=== PATIENT | male | born 1955 | race African-American/Black ===

== ENCOUNTER → 2023-05-18 | Outpatient (CLI) | payer OTHER ==
[2023-05-18 11:01] LABS: COVID19 (SARS ANTIGEN RAPID) PRESUMPTIVE NEGATIVE (NEGATIVE); INFLUENZA TYPE A Negative For Type A (NEGATIVE); INFLUENZA TYPE B Negative For Type B (NEGATIVE)
== END | disposition home or self-care (01) ==
LOC: LAB 09:24
PROVIDERS: ATTEND Hospitalist
DX: U07.1 COVID-19 (principal)
CPT/HCPCS: 87426; 87804

== ENCOUNTER → 2024-08-22 | Outpatient (CLI) | payer OTHER ==
[2024-08-22 14:50] LABS: APPEARANCE,URINE CLEAR (CLEAR); BILIRUBIN,URINE NEGATIVE (NEGATIVE); COLOR,URINE YELLOW (YELLOW); GLUCOSE, URINE (UA) NEGATIVE (NEGATIVE); KETONES,URINE NEGATIVE (NEGATIVE); LEUKOCYTE ESTERASE ,URINE NEGATIVE Leu/uL (NEGATIVE); NITRATE,URINE NEGATIVE (NEGATIVE); OCCULT BLOOD,URINE NEGATIVE (NEGATIVE); PH,URINE 5.5 (5.0-8.0); PROTEIN,URINE 10 mg/dL (NEGATIVE); UROBILINOGEN,URINE 0.2 mg/dL (0.2-1.0)
[2024-08-22 14:51] LABS: ADD UA MICROSCOPIC YES
[2024-08-22 15:00] LABS: BASOPHILS # (AUTO) 0.07 K/uL (0.00-0.20); BASOPHILS % (AUTO) 1.2 % (0.0-5.0); EOSINOPHILS # (AUTO) 0.36 K/uL (0.00-0.70); EOSINOPHILS % (AUTO) 5.9 % (0.0-8.0); IMMATURE GRANULOCYTE ABSOLUTE 0.03 K/uL (0-1); LYMPHOCYTES # (AUTO) 2.1 K/uL (1.0-4.8); MEAN CORPUSCULAR HGB CONC 32.9 g/dL (32.0-36.0); MEAN CORPUSCULAR VOLUME 88.1 fL (79-99); MONOCYTES # (AUTO) 0.6 K/uL (0.1-1.0); MONOCYTES % (AUTO) 9.9 % (3.0-13.0); NEUTROPHILS % (AUTO) 48.5 % (40.0-77.0); PLATELET COUNT (AUTO) 191 K/uL (130-400); RED BLOOD CELL COUNT(AUTO) 5.11 MIL/uL (4.50-6.20); RED CELL DISTRIBUTION WIDTH 13.4 % (11.0-15.5); WHITE BLOOD COUNT (AUTO) 6.1 K/uL (4.8-10.8)
[2024-08-22 15:46] LABS: ALBUMIN 3.8 g/dL (3.5-5.0); BILIRUBIN,TOTAL 0.4 mg/dL (0.2-1.0); CREATININE 1.2 mg/dL (0.5-1.3); POTASSIUM 4.5 mmol/L (3.5-5.1); THYROID STIMULATING HORMONE 1.16 uIU/mL (0.36-3.74); TOTAL PROTEIN, SERUM 7.3 g/dL (6.0-8.3)
[2024-08-22 16:07] LABS: MUCUS,URINE RARE LPF (None Seen); RBC,URINE 0-1 /HPF (0-1); WBC,URINE 0-1 /HPF (0-1)
[2024-08-24 11:12] LABS: PSA ULTRASENSITIVE 0.89 ng/mL (0.000-4.000)
[2024-08-26 23:09] LABS: CORONAVIRUS 229E Not Detected (Not Detected); HUMAN RHINOVIRUS/ENTEROVIRUS Not Detected (Not Detected)
== END | disposition home or self-care (01) ==
LOC: LAB 14:01
PROVIDERS: ATTEND Hospitalist
DX: Z13.1 Encounter for screening for diabetes mellitus (principal); Z13.220 Encounter for screening for lipoid disorders; Z13.21 Encounter for screening for nutritional disorder; R05.9 Cough, unspecified; Z79.899 Other long term (current) drug therapy
CPT/HCPCS: 36415; 80053; 80061; 81001; 82306; 82570; 82607; 84153; 84403; 84443; 85025; 87486; 87581; 87633; 87798

== ENCOUNTER → 2024-08-24 | Outpatient (CLI) | payer OTHER ==
[~2024-08-24] MED LIST: IOHEXOL-350 75 ML VIAL IV ONE
--- NOTE | 2024-08-24 14:03 | HMCIMG ---
CT CHEST WITHOUT AND WITH CONTRAST INDICATION: Cough for 3-4 weeks TECHNIQUE: Routine axial images using 5 mm slice thickness were acquired from the lung apices to the bases before and after the administration of 100 mL of Omnipaque 350 IV contrast.Coronal and sagittal reformatted images acquired for interpretation. CT was performed with one or more of the following dose reduction techniques: Automated exposure control, adjustment of the mA and/or kV according to patient size, or use of iterative reconstruction technique. COMPARISON: None FINDINGS: The heart size is normal. No pericardial effusion noted. The visualized great vessels and thoracic aorta are within normal limits. The trachea and airways are patent. No evidence for pulmonary nodule, consolidation, cavitary lesion, or other abnormal pulmonary parenchymal opacity. No axillary, hilar, or mediastinal lymphadenopathy. No pleural effusion or pneumothorax identified. Limited views of the upper abdomen appear normal. Visible osseous structures are intact. IMPRESSION:
== END | disposition home or self-care (01) ==
LOC: RAH 10:10
PROVIDERS: ATTEND Hospitalist
DX: R05.9 Cough, unspecified (principal)
CPT/HCPCS: 71270; Q9967

== ENCOUNTER → 2024-11-12 | Outpatient (CLI) | payer OTHER ==
[2024-11-12 14:54] LABS: INFLUENZA TYPE A Negative For Type A (NEGATIVE); INFLUENZA TYPE B Negative For Type B (NEGATIVE)
[2024-11-12 14:56] LABS: COVID19 (SARS ANTIGEN RAPID) PRESUMPTIVE NEGATIVE (NEGATIVE)
== END | disposition home or self-care (01) ==
LOC: LAB 13:58
PROVIDERS: ATTEND Hospitalist
DX: Z20.822 Contact with and (suspected) exposure to COVID-19 (principal)
CPT/HCPCS: 87426; 87804

== ENCOUNTER → 2025-05-09 | Outpatient (CLI) | payer OTHER ==
[2025-05-09 10:07] LABS: IMMATURE GRANULOCYTE ABSOLUTE 0.02 K/uL (0-1); NUCLEATED RED BLOOD CELLS 0.0 % (0.0-0.19); PLATELET COUNT (AUTO) 190 K/uL (130-400); RED BLOOD CELL COUNT(AUTO) 4.99 MIL/uL (4.50-6.20); RED CELL DISTRIBUTION WIDTH 13.0 % (11.0-15.5); WHITE BLOOD COUNT (AUTO) 4.6 K/uL (4.8-10.8)
[2025-05-09 10:30] LABS: LDL DIRECT 126.0 mg/dL (0-99); T3 UPTAKE 37.0 % (38-49)
== END | disposition home or self-care (01) ==
LOC: LAB 09:13
PROVIDERS: ATTEND Internal Medicine Cardiovascular Disease
DX: I10 Essential (primary) hypertension (principal); E78.5 Hyperlipidemia, unspecified
CPT/HCPCS: 36415; 80061; 83036; 83880; 84439; 84443; 84479; 85025

== ENCOUNTER → 2025-05-09 | Outpatient (CLI) | payer OTHER ==
--- NOTE | 2025-05-10 10:27 | HMCIMG ---
EXAM: CT - CALCIUM SCORE - HEART [facility], Calcium score estimation. TECHNIQUE: Noncontrast chest CT from the lung apices to the upper abdomen. Evaluation of the coronary vessels for calcium score is performed. Multiplanar reconstructions were obtained. Total exam DLP on 60.4. Total CTDI volume 10.55. CONTRAST: NONE COMPARISON: None FINDINGS: Heart: Non-enlarged, normal position. No evidence of pericardial effusion. Calcium total score: 0 Calcium Score: 0: No identifiable atherosclerotic plaque. 1-10: Minimal plaque burden. 11-100: Mild plaque burden. 101-400: Moderate plaque burden. >400: Extensive plaque burden. Lungs and large airways: There are few scattered areas of ground-glass opacities in the visualized extent of the left lower lobe. Pleural: Unremarkable to the extent visualized . No pleural effusion or thickening. Vessels: The pulmonary trunk is of normal size. Thoracic aorta is not dilated. Mediastinum and maday: There is no mediastinal or hilar adenopathy in the visualized extent . Esophagus is collapsed. There is no hiatal hernia. Bones: No suspicious lytic or blastic abnormality observed. Upper abdomen: Unremarkable. CORONARY ARTERIES: Left main coronary artery (LMA): 0 Left anterior coronary artery descending (LAD): 0 Left circumflex coronary artery (LCX): 0 Right coronary artery: 0 Posterior descending coronary artery (PDA): 0 IMPRESSION: 1. Agatston calcium score of 0 implies a very low likelihood of a cardiac event over the next 3-5 years. 2. Few scattered areas of ground-glass opacities in the visualized extent of the left lower lobe. These may represent early infectious pneumonitis. /[place]
== END | disposition home or self-care (01) ==
LOC: RAH 08:06
PROVIDERS: ATTEND Internal Medicine Cardiovascular Disease
DX: Z13.6 Encounter for screening for cardiovascular disorders (principal)
CPT/HCPCS: 75571